=== PATIENT | female | born 1985 | race Hispanic/Latino ===

== ENCOUNTER → 2020-04-14 | Outpatient (CLI) | payer BC ==
--- NOTE | 2020-04-14 16:46 | Diagnostic Imaging Report ---
Ultrasound female pelvis Clinical diagnosis: Pelvic and perineal pain Last menstrual period: February, Comparison: None Technique: Multiple transaxial and longitudinal images were obtained through the pelvis. Low MHz transducer(s) was(were) utilized endovaginally only as requested by the referring doctor. Color Doppler only images were submitted to evaluate for blood flow. Multiple images were submitted for interpretation. Report: Uterus: 8.5 x 4.1 x 5.1 cm. No mass, no cyst, no endometrial fluid, no q.d. Endometrial stripe measures 6 mm. Right Ovary: 4.3 x 2.6 x 2.4 cm. No mass. Approximately 6 cysts distributed peripherally with central stroma prominence. Left Ovary: 4.0 x 2.0 x 2.3 cm. No mass. Approximately 6-7 cysts distributed peripherally with central stromal prominence. Free Fluid: Small amount of pelvic free fluid is could be physiologic. Impression: Unremarkable uterus. The ovaries have a larger than usual number of cysts distributed along the periphery with central stromal prominence. These do not qualify as a polycystic ovary, clinical and laboratory correlation is suggested. These most likely represent multifocal follicular ovaries. Signed by: Devin Angel MD on 04/14/2020 5:11 PM
== END ==
LOC: US 15:01
PROVIDERS: ATTEND Obstetrics & Gynecology
DX: R10.2 Pelvic and perineal pain (principal)
CPT/HCPCS: 76830

== ENCOUNTER 2021-09-12 14:35 | Emergency (ER) | payer SELFPAY ==
[~2021-09-12] VITALS: Ht 152.4 cm; Wt 65.8 kg
[2021-09-12] MEDS ORDERED: SODIUM CHLORIDE 0.9% 1000ML 1,000 ML IV STA (14:54)
[2021-09-12] MEDS ORDERED: SERTRALINE HCL50 MG (14:56)
[2021-09-12] MEDS ORDERED: GABAPENTIN300 MG (14:56)
[2021-09-12] MEDS ORDERED: HYDROCODON-ACE1 EA11 (14:56)
[2021-09-12] MEDS ORDERED: MELOXICAM15 MG (14:56)
[2021-09-12] MEDS ORDERED: METHIMAZOLE5 MG (14:56)
[2021-09-12] MEDS ORDERED: SERTRALINE HCL25 MG (14:56)
[2021-09-12] MEDS ORDERED: ULTRAM 50MG50 MG (14:56)
[2021-09-12] MEDS ORDERED: CELECOXIB200 MG (14:56)
[2021-09-12] MEDS ORDERED: ALPRAZOLAM1 MG (14:56)
[2021-09-12] MEDS ORDERED: LEVETIRACETAM500 MG PO (14:56)
[2021-09-12 15:04] LABS: BASOPHILS # (AUTO) 0.1 (0.0-0.1); BASOPHILS % 0.7 % (0.0-1.0); EOSINOPHILS # (AUTO) 0.2 (0.0-0.4); EOSINOPHILS % 2.1 % (0.0-6.0); HEMOGLOBIN 13.3 g/dL (12.0-16.0); LYMPHOCYTES # (AUTO) 2.5 (1.0-3.2); LYMPHOCYTES % 34.5 % (18.0-39.1); MEAN CORPUSCULAR HEMOGLOBIN 29.4 pg (28-32); MEAN CORPUSCULAR HGB CONC 32.4 g/dL (31-35); MEAN CORPUSCULAR VOLUME 90.7 fL (81-99); MONOCYTES # (AUTO) 0.6 (0.2-0.8); MONOCYTES % 7.7 % (4.4-11.3); NEUTROPHILS # (AUTO) 3.9 (2.1-6.9); NEUTROPHILS % 54.7 % (38.7-80.0); PLATELET COUNT 408 x10e3/uL (140-360); RED BLOOD COUNT 4.52 x10e6/uL (3.6-5.1); RED CELL DISTRIBUTION WIDTH 11.9 % (11.7-14.4)
[2021-09-12] MEDS ORDERED: ACETAMINOPHEN 325 MG TAB PO STA (15:29)
[2021-09-12] MEDS ORDERED: LEVETIRACETAM 500MG/5ML VIAL 1,000 MG in SODIUM CHLORIDE 0.9% 100 ML IV ONE (15:30)
[2021-09-12 15:32] LABS: ALANINE AMINOTRANSFERASE 40 IU/L (0-55); ALBUMIN 4.3 g/dL (3.5-5.0); ALBUMIN/GLOBULIN RATIO 1.3 (0.8-2.0); ALKALINE PHOSPHATASE 89 IU/L (40-150); ANION GAP 14.6 mmol/L (8-16); BLOOD UREA NITROGEN 9 mg/dL (7-26); BUN/CREATININE RATIO 14 (6-25); CALCIUM 9.4 mg/dL (8.4-10.2); CARBON DIOXIDE 23 mmol/L (22-29); CHLORIDE 105 mmol/L (98-107); CREATININE, SERUM 0.66 mg/dL (0.57-1.11); EST GLOMERULAR FILTRATION RATE 101 ML/MIN (60-); GLUCOSE 109 mg/dL (74-118); MAGNESIUM 1.8 MG/DL (1.3-2.1); POTASSIUM 3.6 mmol/L (3.5-5.1); SODIUM 139 mmol/L (136-145)
[2021-09-12 15:49] LABS: AMPHETAMINES SCREEN,URINE NEGATIVE (NEGATIVE); BENZODIAZEPINES SCREEN,URINE NEGATIVE (NEGATIVE); PHENCYCLIDINE SCREEN,URINE NEGATIVE (NEGATIVE)
[2021-09-12 15:50] LABS: CLARITY,URINE HAZY (CLEAR); COLOR,URINE YELLOW (YELLOW); KETONES,URINE NEGATIVE (NEGATIVE); LEUKOCYTE ESTERASE ,URINE NEGATIVE (NEGATIVE); NITRITE,URINE NEGATIVE (NEGATIVE); PROTEIN,URINE DIPSTICK 2+ (NEGATIVE); URINE UROBILINOGEN 0.2 mg/dL (0.2 - 1)
[2021-09-12 15:51] LABS: BACTERIA,URINE FEW /HPF; EPITHELIAL CELLS,URINE FEW /LPF
[2021-09-12] MEDS ORDERED: KETOROLAC TROMETHAMINE 30 MG/ML VIAL IV STA (16:49)
== END 2021-09-12 17:11 | disposition home or self-care (01) ==
LOC: ER 14:54
DX: G40.909 Epilepsy, unspecified, not intractable, without status epilepticus (principal); F41.9 Anxiety disorder, unspecified; E05.90 Thyrotoxicosis, unspecified without thyrotoxic crisis or storm; E28.2 Polycystic ovarian syndrome
CPT/HCPCS: 36415; 80053; 80307; 81001; 83735; 84702; 85025; 93005; 99284; J1885; J1953; J7030; J7050

== ENCOUNTER → 2024-06-21 | Outpatient (REF) | payer BC ==
[~2024-06-21] MED LIST: ALPRAZOLAM1 MG; CELECOXIB200 MG; GABAPENTIN300 MG; HYDROCODON-ACE1 EA11; LEVETIRACETAM500 MG PO; MELOXICAM15 MG; METHIMAZOLE5 MG; SERTRALINE HCL25 MG; SERTRALINE HCL50 MG; ULTRAM 50MG50 MG
== END ==
LOC: US 11:47
PROVIDERS: ATTEND Obstetrics & Gynecology
DX: N83.201 Unspecified ovarian cyst, right side (principal)
CPT/HCPCS: 76830